=== PATIENT | female | born 2000 | race Two or more races ===

== ENCOUNTER 2023-11-24 17:26 | Emergency (ER) | payer BC ==
[~2023-11-24] VITALS: Ht 160 cm; Wt 59.0 kg
[2023-11-24] MEDS ORDERED: BREO ELLIPTA 21 EACH IH (19:59)
[2023-11-24] MEDS ORDERED: MONTELUKAST SOD10 MG PO (20:17)
[2023-11-24] MEDS ORDERED: BENZONATATE100 MG PO (20:27)
== END 2023-11-24 20:37 | disposition home or self-care (01) ==
LOC: ER 17:28
DX: J45.909 Unspecified asthma, uncomplicated (principal); R05.9 Cough, unspecified; Z20.822 Contact with and (suspected) exposure to COVID-19